=== PATIENT | female | born 1985 | race African-American/Black ===

== ENCOUNTER 2018-04-15 18:44 | Emergency (ER) | payer MEDICAID ==
[~2018-04-15] VITALS: Ht 170.2 cm; Wt 82.0 kg
[~2018-04-15 18:44] MED LIST: DOXY100T PO; SULF1TAB47 PO
[2018-04-15 18:47] VITALS: BP 133/70; PULSE 70; RESP 20; TEMP 97.8; O2SAT 100
[2018-04-15] MEDS ORDERED: PROPARACAINE HCL 0.5% OPHT SOLN 15 ML BTL LEFT EYE ONE (19:00)
[2018-04-15] MEDS ORDERED: IBUP1TAB7 PO (19:39)
[2018-04-15] MEDS ORDERED: TRAM50TA PO (19:39)
[2018-04-15] MEDS ORDERED: ERYTOIN10 RIGHT EYE (19:39)
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
== END 2018-04-15 20:03 | disposition home or self-care (01) ==
LOC: NEPK 18:44
DX: T26.61XA Corrosion of cornea and conjunctival sac, right eye, initial encounter (principal); T65.891A Toxic effect of other specified substances, accidental (unintentional), initial encounter; H91.8X9 Other specified hearing loss, unspecified ear; F17.200 Nicotine dependence, unspecified, uncomplicated; Z87.19 Personal history of other diseases of the digestive system
CPT/HCPCS: 99283